=== PATIENT | male | born 1960 | race Two or more races ===

== ENCOUNTER 2017-08-19 20:56 | Emergency (ER) | payer MEDICAID, OTHER ==
[~2017-08-19] VITALS: Ht 172.7 cm; Wt 90.7 kg
[2017-08-19 21:50] LABS: Basophils # (auto) 0 uL; Basophils % (auto) 0.2 % (0.0-2.0); Eosinophils # (auto) 0.1 uL; Eosinophils % (auto) 0.8 % (0.0-7.0); Hematocrit 45.5 % (41.0-53.0); Hemoglobin 15.5 g/dL (13.5-17.5); Lymphocytes # (auto) 1.4 uL; Lymphocytes % (auto) 11.2 % (10.0-50.0); Mean Corpuscular Hemoglobin 29.1 pg (28.0-32.0); Mean Corpuscular Hgb Conc. 34.1 g/dL (32.0-36.0); Mean Corpuscular Volume 85.4 fL (80.0-100.0); Monocytes # (auto) 0.8 uL; Monocytes % (auto) 6.7 % (0.0-12.0); Neutrophils # (auto) 9.8 uL; Neutrophils % (auto) 81.1 % (37.0-80.0); Nucleated Red Blood Cells % 0.1 %; Platelet Count (auto) 271 10^3/uL (140-450); Red Blood Cells 5.33 10^6/uL (4.5-5.90); Red Cell Distribution Width 12.9 % (11.8-14.3); White Blood Cell 12.1 10^3/uL (4.4-10.8)
[2017-08-19 22:05] LABS: BUN/Creatinine Ratio 13.4; Bilirubin, Total 0.3 mg/dL (0.2-1.0); Calcium 8.7 mg/dL (8.5-10.1); Potassium 3.5 mmol/L (3.5-5.1); Total Protein 8.3 g/dL (6.4-8.2)
[2017-08-19 22:07] LABS: INR 0.95 (0.9-1.15); Partial Thromboplastin Time 26.4 sec (22.64-33.71); Prothrombin Time 10.4 sec (9.37-12.3)
[2017-08-20] MEDS ORDERED: ONDANSETRON HCL 4 MG/2 ML VIAL IV ONE (01:15)
[2017-08-20] MEDS ORDERED: HYDROmorphone HCL 2 MG/ML VL IV ONE (01:15)
[2017-08-20 03:33] VITALS: BP 145/75
== END 2017-08-20 04:14 | disposition home or self-care (01) ==
LOC: ER 20:56 → EDBD 20:56 → ER 08-20 04:14
DX: K43.6 Other and unspecified ventral hernia with obstruction, without gangrene (principal)
CPT/HCPCS: 36415; 74176; 80053; 82150; 83690; 85025; 85610; 85730; 96374; 96375; 99285; J1170; J2405

== ENCOUNTER 2017-09-14 15:35 | Emergency (ER) | payer MEDICAID ==
[~2017-09-14] VITALS: Ht 167.6 cm; Wt 81.2 kg
[2017-09-14] MEDS ORDERED: IOHEXOL 300 MG/ML 100ML BOTTLE IJ ONE (19:17)
[2017-09-14] MEDS ORDERED: DEXAMETHASONE SOD PHOS 10MG/1ML VIAL INJ IM ONE (19:30)
[2017-09-14] MEDS ORDERED: ONDANSETRON ODT 4 MG TAB PO ONE (19:30)
[2017-09-14 20:21] LABS: Albumin 4.7 g/dL (3.4-5.0); Bilirubin, Total 1.3 mg/dL (0.2-1.0); Calcium 9.6 mg/dL (8.5-10.1); Total Protein 9.7 g/dL (6.4-8.2)
[2017-09-14] MEDS ORDERED: ONDANSETRON HCL 4 MG/2 ML VIAL IV ONE (20:30)
[2017-09-14] MEDS ORDERED: MORPHINE SULFATE 10 MG/ML INJ 1ML SDV IV ONE (20:30)
[2017-09-14 21:01] LABS: Basophils # (auto) 0 uL; Eosinophils # (auto) 0 uL; Monocytes # (auto) 0.7 uL; Red Cell Distribution Width 13.4 % (11.8-14.3)
[2017-09-14 21:02] LABS: Basophils % (auto) 0.1 % (0.0-2.0); Hematocrit 52.3 % (41.0-53.0); Lymphocytes # (auto) 1.1 uL; Lymphocytes % (auto) 5.5 % (10.0-50.0); Mean Corpuscular Hemoglobin 29.2 pg (28.0-32.0); Mean Corpuscular Hgb Conc. 34.4 g/dL (32.0-36.0); Monocytes % (auto) 3.7 % (0.0-12.0); Neutrophils # (auto) 17.7 uL; Neutrophils % (auto) 90.7 % (37.0-80.0); Nucleated Red Blood Cells % 0.5 %; Platelet Count (auto) 283 10^3/uL (140-450); Red Blood Cells 6.15 10^6/uL (4.5-5.90); White Blood Cell 19.5 10^3/uL (4.4-10.8)
[2017-09-14 21:14] VITALS: BP 127/83
== END 2017-09-14 21:11 | disposition short-term general hospital (02) ==
LOC: ER 15:35
DX: K46.0 Unspecified abdominal hernia with obstruction, without gangrene (principal); R11.2 Nausea with vomiting, unspecified
CPT/HCPCS: 36415; 74177; 80053; 85025; 96374; 96375; 99285; J2405; Q9967; 93005

== ENCOUNTER 2024-01-10 10:08 | Inpatient (IN) | payer MEDICAID ==
[~2024-01-10] VITALS: Ht 167.6 cm; Wt 78.2 kg
[2024-01-10] MEDS: ONDANSETRON HCL 4 MG/2 ML VIAL IV ONE (10:57)
[2024-01-10] MEDS: SODIUM CHLORIDE 0.9% 1,000 ML IV ONE (11:00)
[2024-01-10] MEDS: HYDROmorphone HCL 2 MG/ML VL/or syr IV ONE ×3 (11:01→15:17)
[2024-01-10 11:14] LABS: Urine Bacteria None Seen /hpf (None Seen); Urine WBC None Seen /hpf (0 - 3)
[2024-01-10 11:19] LABS: Basophils # (auto) 0 10 ^3/uL (0-0.2); Basophils % (auto) 0.2 % (0.0-2.0); Eosinophils # (auto) 0.2 10 ^3/uL (0-0.8); Eosinophils % (auto) 1.2 % (0.0-7.0); Hematocrit 47.7 % (41.0-53.0); Hemoglobin 16.4 g/dL (13.5-17.5); Lymphocytes # (auto) 1.7 10 ^3/uL (0.4-5.4); Lymphocytes % (auto) 11.7 % (10.0-50.0); Mean Corpuscular Hemoglobin 29.1 pg (28.0-32.0); Mean Corpuscular Hgb Conc. 34.5 g/dL (32.0-36.0); Mean Corpuscular Volume 84.4 fL (80.0-100.0); Monocytes # (auto) 1.3 10 ^3/uL (0-1.3); Monocytes % (auto) 8.9 % (0.0-12.0); Neutrophils # (auto) 11.1 10 ^3/uL (1.6-8.6); Nucleated Red Blood Cells % 0.2 %; Red Blood Cells 5.65 10^6/uL (4.5-5.90); Red Cell Distribution Width 13.4 % (11.8-14.3); White Blood Cell 14.2 10^3/uL (4.4-10.8)
[2024-01-10 11:32] LABS: Urine Blood Negative /uL (Negative); Urine Clarity Clear (Clear); Urine Color Light-Orange (Yellow); Urine Mucus FEW (None Seen); Urine Protein, UAD Negative (Negative); Urine Specific Gravity 1.015 (1.001-1.035); Urine Urobilinogen Normal (Negative); Urine pH 7.5 (5.0-9.0)
[2024-01-10 11:38] LABS: Alanine Aminotransferase 57 U/L (7-40); Albumin 4.4 g/dL (3.2-4.8); Alkaline Phosphatase 124 U/L (46-116); Anion Gap 4 (5-15); Aspartate Aminotransferase 36 U/L (13-40); BUN/Creatinine Ratio 12.5 (10.0-20.0); Blood Urea Nitrogen 10 mg/dL (9-23); Calcium 9.7 mg/dL (8.7-10.4); Carbon Dioxide 25 mmol/L (20-30); Chloride 108 mmol/L (98-107); Creatine Kinase IFCC 65 U/L (46-171); Glucose 115 mg/dL (74-106); Lipase 34 U/L (12-53); Potassium 3.9 mmol/L (3.5-5.1); Sodium 137 mmol/L (136-145)
[2024-01-10 11:39] LABS: Bilirubin, Total 1.5 mg/dL (0.2-1.0)
[2024-01-10 11:44] LABS: INR 1.03 (0.9-1.15); Partial Thromboplastin Time 29.5 SEC (24.5-34.5); Prothrombin Time 10.9 sec (9.3-11.8)
[2024-01-10] MEDS: IOHEXOL 300 MG/ML 100ML BOTTLE IJ ONE (11:58)
[2024-01-10] MEDS ORDERED: NITROGLYCERIN 0.4 MG SL TAB SL PRN (16:15)
[2024-01-10] MEDS ORDERED: TEMAZEPAM 15 MG CAP PO PRN (16:15)
[2024-01-10] MEDS ORDERED: MORPHINE SULFATE INJ 2 MG/ml SYRG IV PRN (16:15)
[2024-01-10] MEDS: SODIUM CHLORIDE 0.9% 1,000 ML IV SCH (16:15)
[2024-01-10] MEDS ORDERED: DOCUSATE SOD 100 MG CAP PO PRN (16:15)
[2024-01-10] MEDS ORDERED: ONDANSETRON HCL 4 MG/2 ML VIAL IV PRN (16:15)
[2024-01-10] MEDS: PIPERACILLIN-TAZO 4.5GM 100 ML IV ONE (16:42)
[2024-01-10] MEDS: MORPHINE SULFATE INJ 2 MG/ml SYRG IV PRN (17:10)
[2024-01-10 17:14] VITALS: BP 171/78; PULSE 64; RESP 20; TEMP 97.6; O2SAT 96
[2024-01-10 17:34] LABS: INR 1.08 (0.9-1.15); Prothrombin Time 11.4 sec (9.3-11.8)
[2024-01-10] MEDS ORDERED: CLIN-203 PO (17:38)
[2024-01-10] MEDS: amLODIPine BESYLATE 5 MG TAB PO ONE (18:48)
[2024-01-10 20:00] VITALS: PULSE 71; RESP 20; O2SAT 94
[2024-01-10 21:00] VITALS: BP 170/81; PULSE 71; RESP 20; TEMP 98.8; O2SAT 94
[2024-01-11] VITALS (9 sets, daily range): BP systolic 122–167; BP diastolic 70–81; PULSE 79–100; RESP 16–19; TEMP 97.5–99.5; O2SAT 90–96
[2024-01-11] MEDS: HYDROmorphone HCL 2 MG/ML VL/or syr IV PRN (01:20)
[2024-01-11] MEDS: PIPERACILLIN-TAZOB 3.375GM 100 ML IV SCH (01:25)
[2024-01-11] MEDS: hydrALAZINE HCL 20 MG/ML VL IV PRN (04:27)
[2024-01-11 09:52] LABS: Hematocrit 49.8 % (41.0-53.0); Hemoglobin 17.2 g/dL (13.5-17.5); Mean Corpuscular Hgb Conc. 34.5 g/dL (32.0-36.0); Mean Corpuscular Volume 84.2 fL (80.0-100.0); Red Blood Cells 5.91 10^6/uL (4.5-5.90); Red Cell Distribution Width 13.4 % (11.8-14.3)
[2024-01-11 09:54] LABS: Band Neutrophils % (manual) 0; Basophils % (manual) 0 (0.0-2.0); Blast Cells 0; Eosinophils % (manual) 0 (0-7); Metamyelocytes % 0; Myelocytes % 0; Promyelocytes % 0; Reactive Lymphocytes 0
[2024-01-11 10:08] LABS: Alanine Aminotransferase 48 U/L (7-40); Alkaline Phosphatase 117 U/L (46-116); Anion Gap 4 (5-15); BUN/Creatinine Ratio 13.9 (10.0-20.0); Blood Urea Nitrogen 11 mg/dL (9-23); Calcium 9.5 mg/dL (8.5-10.1); Carbon Dioxide 27 mmol/L (20-30); Chloride 102 mmol/L (98-107); Glucose 130 mg/dL (74-106); Potassium 3.4 mmol/L (3.5-5.1); Sodium 133 mmol/L (136-145)
[2024-01-11 10:09] LABS: Albumin 4.6 g/dL (3.2-4.8); Aspartate Aminotransferase 25 U/L (13-40)
[2024-01-11 10:10] LABS: Bilirubin, Total 1.9 mg/dL (0.2-1.0); Total Protein 8.2 g/dL (5.7-8.2)
[2024-01-11 10:19] LABS: Lymphocytes % (manual) 7 (10.0-50.0); Monocytes % (manual) 20 (0-12)
[2024-01-11 10:20] LABS: Platelet Estimate Adequate
[2024-01-11] MEDS: LIDOCAINE W/ EPINEPHRINE 1% 20ML VIAL ONE (10:54)
[2024-01-11] MEDS: BUPIVACAINE HCL 0.25% P/F 10 ML VIAL ONE (10:54)
[2024-01-11] MEDS: ceFAZolin 2 GM/D5W50ml 50 ML IV ONE (11:03)
[2024-01-11] MEDS ORDERED: MIDAZOLAM HCL 2MG/2ML 2ml VIAL (1mg/ml) ONE (11:21)
[2024-01-11] MEDS ORDERED: fentaNYL CITRATE 100 MCG/2 ML VL ONE (11:21)
[2024-01-11] MEDS ORDERED: PROPOFOL 10 MG/ML 20 ML IV ONE (11:22)
[2024-01-11] MEDS ORDERED: DexAMETHasone SOD PHOS 10MG/1ML VIAL INJ ONE (11:42)
[2024-01-11] MEDS ORDERED: ONDANSETRON HCL 4 MG/2 ML VIAL ONE (11:42)
[2024-01-11] MEDS ORDERED: ePHEDrine SULFATE 50 MG/ML AMP ONE (11:49)
[2024-01-11] MEDS ORDERED: HYDROmorphone HCL 2 MG/ML VL/or syr ONE (11:53)
[2024-01-11] MEDS ORDERED: SUGAMMADEX 200mg/2ml Vial (100MG/ML) IV ONE (12:15)
[2024-01-11] MEDS: POVIDONE IODINE 10 % TOPICAL OINT 30GM TOP ONE (12:18)
[2024-01-11] MEDS ORDERED: HYDROmorphone HCL 2 MG/ML VL/or syr IV PRN (12:45)
[2024-01-11] MEDS: ONDANSETRON HCL 4 MG/2 ML VIAL IV ONE (12:45)
[2024-01-12] VITALS (7 sets, daily range): BP systolic 116–129; BP diastolic 58–71; PULSE 68–86; RESP 16–18; TEMP 98.1–99.4; O2SAT 92–95
[2024-01-12 07:05] LABS: Hematocrit 43.3 % (41.0-53.0); Hemoglobin 14.6 g/dL (13.5-17.5); Mean Corpuscular Hemoglobin 28.8 pg (28.0-32.0); Mean Corpuscular Hgb Conc. 33.7 g/dL (32.0-36.0); Mean Corpuscular Volume 85.5 fL (80.0-100.0); Red Blood Cells 5.06 10^6/uL (4.5-5.90); Red Cell Distribution Width 13.3 % (11.8-14.3); White Blood Cell 27.9 10^3/uL (4.4-10.8)
[2024-01-12 07:19] LABS: Band Neutrophils % (manual) 0; Basophils % (manual) 0 (0.0-2.0); Blast Cells 0; Eosinophils % (manual) 0 (0-7); Metamyelocytes % 0; Myelocytes % 0; Promyelocytes % 0; Reactive Lymphocytes 0
[2024-01-12 08:14] LABS: Lymphocytes % (manual) 11 (10.0-50.0); Monocytes % (manual) 11 (0-12); Platelet Estimate Adequate
[2024-01-12] MEDS: PANTOPRAZOLE 40 MG/10 ML VIAL INJ IV SCH (10:30)
[2024-01-13] VITALS (7 sets, daily range): BP systolic 119–134; BP diastolic 63–69; PULSE 60–75; RESP 17–18; TEMP 97.9–98.2; O2SAT 94–98
[2024-01-13 05:30] LABS: Basophils # (auto) 0 10 ^3/uL (0-0.2); Basophils % (auto) 0.2 % (0.0-2.0); Eosinophils # (auto) 0 10 ^3/uL (0-0.8); Hematocrit 40.6 % (41.0-53.0); Hemoglobin 13.8 g/dL (13.5-17.5); Lymphocytes # (auto) 1.6 10 ^3/uL (0.4-5.4); Mean Corpuscular Hemoglobin 28.9 pg (28.0-32.0); Mean Corpuscular Hgb Conc. 33.9 g/dL (32.0-36.0); Mean Corpuscular Volume 85.4 fL (80.0-100.0); Monocytes # (auto) 1.5 10 ^3/uL (0-1.3); Monocytes % (auto) 7.8 % (0.0-12.0); Neutrophils # (auto) 16.2 10 ^3/uL (1.6-8.6); Red Blood Cells 4.76 10^6/uL (4.5-5.90); Red Cell Distribution Width 13.3 % (11.8-14.3); White Blood Cell 19.3 10^3/uL (4.4-10.8)
[2024-01-13 05:43] LABS: Alanine Aminotransferase 43 U/L (7-40); Albumin 3.5 g/dL (3.2-4.8); Alkaline Phosphatase 78 U/L (46-116); Anion Gap 5 (5-15); Aspartate Aminotransferase 25 U/L (13-40); BUN/Creatinine Ratio 19.4 (10.0-20.0); Blood Urea Nitrogen 14 mg/dL (9-23); Calcium 8.6 mg/dL (8.5-10.1); Carbon Dioxide 26 mmol/L (20-30); Chloride 108 mmol/L (98-107); Glucose 113 mg/dL (74-106); Potassium 3.7 mmol/L (3.5-5.1); Sodium 139 mmol/L (136-145)
[2024-01-13 05:44] LABS: Bilirubin, Total 0.9 mg/dL (0.2-1.0); Total Protein 6.3 g/dL (5.7-8.2)
[2024-01-14] VITALS (7 sets, daily range): BP systolic 130–145; BP diastolic 68–91; PULSE 58–75; RESP 16–18; TEMP 98–98.9; O2SAT 95–97
[2024-01-14 06:02] LABS: Basophils # (auto) 0 10 ^3/uL (0-0.2); Basophils % (auto) 0.3 % (0.0-2.0); Eosinophils # (auto) 0.3 10 ^3/uL (0-0.8); Eosinophils % (auto) 2.3 % (0.0-7.0); Lymphocytes # (auto) 2.4 10 ^3/uL (0.4-5.4); Lymphocytes % (auto) 18.9 % (10.0-50.0); Mean Corpuscular Hemoglobin 28.5 pg (28.0-32.0); Mean Corpuscular Hgb Conc. 33.4 g/dL (32.0-36.0); Mean Corpuscular Volume 85.3 fL (80.0-100.0); Monocytes # (auto) 1.3 10 ^3/uL (0-1.3); Monocytes % (auto) 10.2 % (0.0-12.0); Neutrophils # (auto) 8.8 10 ^3/uL (1.6-8.6); Neutrophils % (auto) 68.3 % (37.0-80.0); Nucleated Red Blood Cells % 0.1 %; Red Blood Cells 4.92 10^6/uL (4.5-5.90); Red Cell Distribution Width 13.4 % (11.8-14.3); White Blood Cell 12.9 10^3/uL (4.4-10.8)
[2024-01-15 01:00] VITALS: BP 141/73; PULSE 63; RESP 18; TEMP 98.4; O2SAT 96
[2024-01-15 05:00] VITALS: BP 129/67; PULSE 64; RESP 16; TEMP 97.8; O2SAT 97
[2024-01-15 06:30] LABS: Basophils # (auto) 0 10 ^3/uL (0-0.2); Basophils % (auto) 0.2 % (0.0-2.0); Eosinophils # (auto) 0.5 10 ^3/uL (0-0.8); Eosinophils % (auto) 3.5 % (0.0-7.0); Hematocrit 43.8 % (41.0-53.0); Hemoglobin 14.8 g/dL (13.5-17.5); Lymphocytes # (auto) 2.4 10 ^3/uL (0.4-5.4); Lymphocytes % (auto) 18.9 % (10.0-50.0); Mean Corpuscular Hemoglobin 28.6 pg (28.0-32.0); Mean Corpuscular Hgb Conc. 33.8 g/dL (32.0-36.0); Mean Corpuscular Volume 84.5 fL (80.0-100.0); Monocytes # (auto) 1.3 10 ^3/uL (0-1.3); Neutrophils # (auto) 8.7 10 ^3/uL (1.6-8.6); Neutrophils % (auto) 67.4 % (37.0-80.0); Nucleated Red Blood Cells % 0.1 %; Red Blood Cells 5.18 10^6/uL (4.5-5.90); White Blood Cell 12.9 10^3/uL (4.4-10.8)
[2024-01-15 08:00] VITALS: PULSE 62; RESP 18; O2SAT 95; O2SAT 97
[2024-01-15 09:00] VITALS: BP 129/72; PULSE 61; RESP 18; TEMP 97.5; O2SAT 97
[2024-01-15] MEDS ORDERED: METR-344 PO (10:07)
[2024-01-15] MEDS ORDERED: LEVO500T91 PO (10:07)
[2024-01-15 11:16] VITALS: BP 167/81; TEMP 36.4
== END 2024-01-15 12:30 | disposition home or self-care (01) | DRG 710 ==
LOC: ER 10:08 → OVERFLOW 16:09 → EAST 17:20
PROVIDERS: ADMIT Nurse Practitioner Family; ATTEND Family Medicine
PROC: 0DNE4ZZ Release Large Intestine, Percutaneous Endoscopic Approach (ICD-10-PCS; 2024-01-11)
PROC: 0FT44ZZ Resection of Gallbladder, Percutaneous Endoscopic Approach (ICD-10-PCS; principal; 2024-01-11 11:31)
DX: A41.9 Sepsis, unspecified organism (principal); K80.00 Calculus of gallbladder with acute cholecystitis without obstruction; K76.0 Fatty (change of) liver, not elsewhere classified; K82.A1 Gangrene of gallbladder in cholecystitis; E86.0 Dehydration; I10 Essential (primary) hypertension; K66.0 Peritoneal adhesions (postprocedural) (postinfection); K82.8 Other specified diseases of gallbladder; R74.01 Elevation of levels of liver transaminase levels; Z79.899 Other long term (current) drug therapy
CPT/HCPCS: 36415; 71045; 74177; 76705; 80053; 81001; 82247; 82550; 83605; 83690; 85007; 85025; 85027; 85610; 85730; 86850; 86900; 86901; 87040; 87070; 87075; 87205; 93005; C9113; G0378; J1100; J2250; J2405; J2543; J2704; J3490

== ENCOUNTER → 2024-09-01 | Outpatient (CLI) | payer MEDICAID ==
[~2024-09-01] MED LIST: LEVO500T91 PO; METR-344 PO
[2024-09-01 09:45] LABS: Urine Bacteria None Seen /hpf (None Seen)
[2024-09-01 09:56] LABS: Urine Blood Negative /uL (Negative); Urine Clarity Clear (Clear); Urine Color Colorless (Yellow); Urine Protein, UAD Negative (Negative); Urine Specific Gravity 1.009 (1.001-1.035); Urine Squamous Epithelial Cell None Seen /hpf (<5); Urine Urobilinogen Normal (Negative); Urine pH 6.5 (5.0-9.0)
[2024-09-01 10:00] LABS: Basophils # (auto) 0.1 10 ^3/uL (0-0.2); Basophils % (auto) 0.6 % (0.0-2.0); Eosinophils # (auto) 0.2 10 ^3/uL (0-0.8); Hematocrit 49.8 % (41.0-53.0); Lymphocytes # (auto) 2.6 10 ^3/uL (0.4-5.4); Lymphocytes % (auto) 29.4 % (10.0-50.0); Mean Corpuscular Hemoglobin 28.9 pg (28.0-32.0); Mean Corpuscular Hgb Conc. 34.1 g/dL (32.0-36.0); Mean Corpuscular Volume 84.7 fL (80.0-100.0); Monocytes # (auto) 0.9 10 ^3/uL (0-1.3); Monocytes % (auto) 9.9 % (0.0-12.0); Neutrophils # (auto) 5.1 10 ^3/uL (1.6-8.6); Neutrophils % (auto) 58.1 % (37.0-80.0); Nucleated Red Blood Cells % 0.3 %; Platelet Count (auto) 253 10^3/uL (140-450); Red Blood Cells 5.87 10^6/uL (4.5-5.90); Red Cell Distribution Width 13.4 % (11.8-14.3); White Blood Cell 8.8 10^3/uL (4.4-10.8)
[2024-09-01 10:33] LABS: Free T3 3.81 pg/mL (2.3-4.2)
[2024-09-01 10:34] LABS: Free T4 (Free Thyroxine) 1.06 ng/dL (0.89-1.76)
[2024-09-01 11:49] LABS: Alanine Aminotransferase 23 U/L (7-40); Anion Gap 6 (5-15); Calcium 10.1 mg/dL (8.7-10.4); Carbon Dioxide 28 mmol/L (20-31); Chloride 104 mmol/L (98-107); Sodium 138 mmol/L (136-145)
[2024-09-01 11:51] LABS: Aspartate Aminotransferase 14 U/L (13-40); BUN/Creatinine Ratio 15.4 (10.0-20.0); Blood Urea Nitrogen 12 mg/dL (9-23); Glucose 101 mg/dL (74-106)
[2024-09-01 11:53] LABS: Albumin 4.5 g/dL (3.2-4.8); Bilirubin, Total 0.8 mg/dL (0.2-1.0); Total Protein 7.8 g/dL (5.7-8.2)
[2024-09-01 12:30] LABS: Alkaline Phosphatase 89 U/L (46-116)
[2024-09-02 13:13] LABS: Cholesterol 197 mg/dL (< 200)
[2024-09-02 13:14] LABS: LDL Cholesterol 121 mg/dL (< 100); Triglycerides 254 mg/dL (< 150)
[2024-09-02 13:30] LABS: HDL Cholesterol 32 mg/dL (40-59)
== END | disposition home or self-care (01) ==
LOC: LAB 09:15
PROVIDERS: ATTEND Internal Medicine
DX: Z13.1 Encounter for screening for diabetes mellitus (principal); Z13.220 Encounter for screening for lipoid disorders; I10 Essential (primary) hypertension; Z76.89 Persons encountering health services in other specified circumstances
CPT/HCPCS: 36415; 80053; 80061; 81001; 83036; 84439; 84443; 84481; 85025

== ENCOUNTER → 2024-11-02 | Outpatient (CLI) | payer MEDICAID ==
[2024-11-02 08:50] LABS: Alanine Aminotransferase 23 U/L (7-40); Albumin 4.5 g/dL (3.2-4.8); Alkaline Phosphatase 90 U/L (46-116); Anion Gap 8 (5-15); Aspartate Aminotransferase 15 U/L (13-40); BUN/Creatinine Ratio 12.6 (10.0-20.0); Blood Urea Nitrogen 11 mg/dL (9-23); Calcium 9.6 mg/dL (8.7-10.4); Carbon Dioxide 28 mmol/L (20-31); Chloride 105 mmol/L (98-107); Creatine Kinase IFCC 57 U/L (46-171); Glucose 102 mg/dL (74-106); Sodium 141 mmol/L (136-145); Total Protein 7.7 g/dL (5.7-8.2)
[2024-11-02 08:51] LABS: Bilirubin, Total 0.8 mg/dL (0.2-1.0)
== END | disposition home or self-care (01) ==
LOC: LAB 07:45
PROVIDERS: ATTEND Internal Medicine
DX: R10.9 Unspecified abdominal pain (principal); Z68.28 Body mass index [BMI] 28.0-28.9, adult
CPT/HCPCS: 36415; 80053; 82550

== ENCOUNTER → 2024-12-25 | Outpatient (CLI) | payer MEDICAID ==
[2024-12-25 08:26] LABS: Alanine Aminotransferase 22 U/L (7-40); Albumin 4.3 g/dL (3.2-4.8); Alkaline Phosphatase 92 U/L (46-116); Anion Gap 7 (5-15); Aspartate Aminotransferase 16 U/L (13-40); BUN/Creatinine Ratio 15.9 (10.0-20.0); Blood Urea Nitrogen 13 mg/dL (9-23); Calcium 9.5 mg/dL (8.7-10.4); Carbon Dioxide 25 mmol/L (20-31); Creatine Kinase IFCC 74 U/L (46-171); Glucose 98 mg/dL (74-106); Potassium 3.7 mmol/L (3.5-5.1); Sodium 141 mmol/L (136-145); Total Protein 7.3 g/dL (5.7-8.2)
[2024-12-25 08:27] LABS: Bilirubin, Total 0.8 mg/dL (0.2-1.0)
[2024-12-25 08:29] LABS: Chloride 109 mmol/L (98-107)
== END | disposition home or self-care (01) ==
LOC: LAB 07:20
PROVIDERS: ATTEND Internal Medicine
DX: I10 Essential (primary) hypertension (principal); K43.9 Ventral hernia without obstruction or gangrene
CPT/HCPCS: 36415; 80053; 82550